=== PATIENT | male | born 1955 | race Caucasian/White ===

== ENCOUNTER → 2025-03-16 | Outpatient (CLI) | payer OTHER ==
[~2025-03-16] MED LIST: ASPI81TA26 PO; ATOR40TA75 PO; B-1100TA2 PO; CIAL20TA PO; DIGO0.123 PO; ELIQ5TAB PO; LISI2.5T9 PO; LISI5TAB11 PO; METO25TA4 PO; OMEP-173 PO; RA S25CA PO; REST0.05 OU; TAMS-18 PO
== END ==
LOC: M SLEEP 20:00
PROVIDERS: ATTEND Registered Nurse
DX: R06.83 Snoring (principal); G47.33 Obstructive sleep apnea (adult) (pediatric)

== ENCOUNTER 2025-03-25 13:42 | Inpatient (IN) | payer OTHER, MEDICARE ==
[~2025-03-25] VITALS: Ht 185.4 cm; Wt 102.6 kg
[2025-03-25] MEDS ORDERED: TAMS-18 PO (14:00)
[2025-03-25] MEDS ORDERED: LISI2.5T9 PO (14:00)
[2025-03-25] MEDS ORDERED: OMEP-173 PO (14:00)
[2025-03-25] MEDS ORDERED: ASPI81TA26 PO (14:00)
[2025-03-25] MEDS ORDERED: ATOR40TA75 PO (14:00)
[2025-03-25 14:25] LABS: BASO # 0.1 10^3/uL (0.0-0.2); BASO % 0.9 % (0.0-1.0); EOS # 0.3 10^3/uL (0.0-0.5); EOS % 5.7 % (0.0-3.0); LYMPH # 2.3 10^3/uL (1.5-5.0); LYMPH % 39.4 % (24.0-44.0); MONO # 0.7 10^3/uL (0.0-0.8); MONO % 11.3 % (2.0-8.0); NEUTROPHILS # 2.5 10^3/uL (1.5-8.5); NEUTROPHILS % 42.5 % (36.0-66.0); PLATELET COUNT, AUTOMATED 168 10^3/uL (150-450)
[2025-03-25 14:38] LABS: INR 1.02
[2025-03-25 14:58] LABS: CALCIUM LEVEL 8.6 MG/DL (8.3-10.6); CARBON DIOXIDE LEVEL 26 MMOL/L (20-31); CHLORIDE LEVEL 106 MMOL/L (98-107); CK-MB VALUE MASS 3.0 NG/ML (<3.6); CPK CREATINE PHOSPHOKINASE 130 U/L (46-171); CREATININE FOR GFR 1.08 MG/DL (0.70-1.30); GLOMERULAR FILTRATION RATE 73.4 (>42); MB/CK RELATIVE INDEX 2.30 (< OR =4); POTASSIUM SERUM 4.6 MMOL/L (3.5-5.1); SODIUM LEVEL 139 MMOL/L (136-145)
[2025-03-25] MEDS: ASPIRIN 81 MG CHEWABLE TABLET PO ONE (15:05)
[2025-03-25] MEDS: METOPROLOL 5 MG/5 ML VIAL IV PRN (15:05)
[2025-03-25] MEDS ORDERED: ISOVUE-370 76% 100 ML VIAL As Ordered ONE (15:40)
[2025-03-25 15:48] LABS: CK-MB VALUE MASS 2.9 NG/ML (<3.6)
[2025-03-25 15:59] LABS: CPK CREATINE PHOSPHOKINASE 121 U/L (46-171); MB/CK RELATIVE INDEX 2.39 (< OR =4)
[2025-03-25] MEDS ORDERED: B-1100TA2 PO (16:03)
[2025-03-25] MEDS ORDERED: RA S25CA PO (16:03)
[2025-03-25] MEDS ORDERED: REST0.05 OU (16:03)
[2025-03-25] MEDS ORDERED: CIAL20TA PO (16:03)
[2025-03-25] MEDS ORDERED: LISI5TAB11 PO (16:03)
[2025-03-25] MEDS ORDERED: HOME MED LIST COMPLETE! XX SCH (16:05)
[2025-03-25] MEDS: APIXABAN 5 MG TAB PO ONE (17:26)
[2025-03-25] MEDS: METOPROLOL TART 25 MG TABLET PO ONE (17:27)
[2025-03-25] MEDS: DIGOXIN INJ 0.5 MG/2 ML AMP IV ONE (17:29)
[2025-03-25] MEDS ORDERED: ACETAMINOPHEN 325 MG TAB PO PRN (22:15)
[2025-03-25] MEDS ORDERED: MAALOX 30 ML SUSP *UDC PO PRN (22:15)
[2025-03-25] MEDS ORDERED: MOM 30 ML SUSPENSION UDC PO PRN (22:15)
[2025-03-25] MEDS: TAMSULOSIN 0.4 MG CAP PO SCH (23:42)
[2025-03-25] MEDS: DIGOXIN INJ 0.5 MG/2 ML AMP IV SCH (23:42)
[2025-03-25] MEDS: ASPIRIN 81 MG ENTERIC TABLET PO SCH (23:53)
[2025-03-26] VITALS (10 sets, daily range): BP systolic 120–143; BP diastolic 67–79; TEMP 97.1–97.7; O2SAT 92–96
[2025-03-26 05:37] LABS: PLATELET COUNT, AUTOMATED 157 10^3/uL (150-450)
[2025-03-26 06:06] LABS: CALCIUM LEVEL 8.4 MG/DL (8.3-10.6); CARBON DIOXIDE LEVEL 24.0 MMOL/L (20-31); CHLORIDE LEVEL 108.0 MMOL/L (98-107); CREATININE FOR GFR 1.03 MG/DL (0.70-1.30); GLOMERULAR FILTRATION RATE 77.7 (>42); MAGNESIUM LEVEL 2.1 MG/DL (1.8-2.4); PHOSPHORUS LEVEL 4.0 MG/DL (2.4-5.1); POTASSIUM SERUM 4.3 MMOL/L (3.5-5.1); SODIUM LEVEL 139.0 MMOL/L (136-145)
[2025-03-26 06:09] LABS: FREE T4 0.99 NG/DL (0.89-1.76)
[2025-03-26] MEDS: MIDODRINE 5 MG TAB PO ONE (07:41)
[2025-03-26] MEDS: METOPROLOL TART 50 MG TAB PO SCH (07:43)
[2025-03-26] MEDS ORDERED: METO25TA4 PO (07:51)
[2025-03-26] MEDS ORDERED: DIGO0.123 PO (07:51)
[2025-03-26] MEDS ORDERED: ELIQ5TAB PO (07:51)
[2025-03-26 08:01] LABS: DIGOXIN LEVEL 4.1 NG/ML (0.8-2.0)
[2025-03-26] MEDS: DOCUSATE SODIUM 100 MG CAPSULE PO SCH (09:00)
[2025-03-26] MEDS ORDERED: DIGOXIN 0.125 MG TAB PO SCH (09:00)
[2025-03-26] MEDS: APIXABAN 5 MG TAB PO SCH (09:11)
[2025-03-26] MEDS: ATORVASTATIN 20 MG TAB PO SCH (09:11)
[2025-03-26] MEDS: THIAMINE 100 MG TAB PO SCH (09:11)
[2025-03-26] MEDS: PANTOPRAZOLE 40MG VIAL IV SCH (09:12)
[2025-03-26] MEDS ORDERED: RIVAROXABAN 10MG TAB PO SCH (18:00)
== END 2025-03-26 15:22 | disposition home or self-care (01) | DRG 310 ==
LOC: M ED 13:42 → M ED INP 22:13 → M PCU 03-26 04:43
PROVIDERS: ADMIT Student in an Organized Health Care Education/Training Program; ATTEND General Practice
DX: I48.92 Unspecified atrial flutter (principal); I10 Essential (primary) hypertension; E78.5 Hyperlipidemia, unspecified; N40.0 Benign prostatic hyperplasia without lower urinary tract symptoms; I71.20 Thoracic aortic aneurysm, without rupture, unspecified; K22.70 Barrett's esophagus without dysplasia; H26.9 Unspecified cataract; Z79.899 Other long term (current) drug therapy; Z79.82 Long term (current) use of aspirin; Z88.0 Allergy status to penicillin